=== PATIENT | female | born 1970 | race Caucasian/White ===

== ENCOUNTER 2017-12-18 06:03 | Day surgery (SDC) | payer OTHER ==
[~2017-12-18] VITALS: Ht 175.3 cm; Wt 114.9 kg
[~2017-12-18 06:03] MED LIST: ATOR20 PO; CYCL10 PO; DULO60 PO; Diclofenac Sodi50 MG; HYDACE5; HYDACE5 PO; HYDCHL25 PO; IBUP600 PO; LABE100 PO; LISI20 PO; LISINOPRIL PO; LORA1 PO; NAPR500 PO; OXYACE5T PO; OXYACE7.5T PO; PENVK500 PO; POTA10T PO; PRAZ2 PO; RXCYCL10 PO; RXHYDACE PO; RXLORA1 PO; RXOXYACE PO; VENL75
[2017-12-18] MEDS ORDERED: MELO7.5 PO (06:49)
== END 2017-12-18 12:48 | disposition home or self-care (01) ==
LOC: ORSCSDS 06:03
PROVIDERS: Otolaryngology
PROC: 0GTK0ZZ Resection of Thyroid Gland, Open Approach (ICD-10-PCS; principal; 2017-12-18 07:30)
PROC: 0GBJ0ZZ Excision of Thyroid Gland Isthmus, Open Approach (ICD-10-PCS; principal; 2017-12-18 07:30)
DX: E05.20 Thyrotoxicosis with toxic multinodular goiter without thyrotoxic crisis or storm (principal); I10 Essential (primary) hypertension; E66.01 Morbid (severe) obesity due to excess calories; Z68.37 Body mass index [BMI] 37.0-37.9, adult; Z87.891 Personal history of nicotine dependence; Z79.899 Other long term (current) drug therapy
CPT/HCPCS: 88307; J0171; J1100; J1885; J2250; J2405; J2550; J2710; J3010; J7120

== ENCOUNTER 2018-07-19 10:23 | Emergency (ER) | payer OTHER ==
[~2018-07-19] VITALS: Ht 175.3 cm; Wt 117.9 kg
[~2018-07-19 10:23] MED LIST changes: +MELO7.5 PO
[2018-07-19] MEDS ORDERED: BACL10 PO (10:31)
[2018-07-19] MEDS ORDERED: Fish Oil 10001000 MG GT (10:31)
[2018-07-19] MEDS ORDERED: Percocet 5-3251 EACH PO (12:40)
[2018-07-19] MEDS ORDERED: Robaxin500 MG PO (12:40)
== END 2018-07-19 12:58 | disposition home or self-care (01) ==
LOC: ER 10:23
DX: S16.1XXA Strain of muscle, fascia and tendon at neck level, initial encounter (principal); S29.012A Strain of muscle and tendon of back wall of thorax, initial encounter; S39.012A Strain of muscle, fascia and tendon of lower back, initial encounter; Z87.891 Personal history of nicotine dependence; V49.49XA Driver injured in collision with other motor vehicles in traffic accident, initial encounter
CPT/HCPCS: 72040; 72070; 72100; 81025; 99284-25

== ENCOUNTER 2019-10-16 16:45 | Emergency (ER) | payer OTHER ==
[~2019-10-16] VITALS: Ht 175.3 cm; Wt 127.0 kg
[~2019-10-16 16:45] MED LIST changes: +BACL10 PO; +Fish Oil 10001000 MG GT; +Percocet 5-3251 EACH PO; +Robaxin500 MG PO
== END 2019-10-16 17:58 | disposition home or self-care (01) ==
LOC: ER 16:45
DX: S16.1XXA Strain of muscle, fascia and tendon at neck level, initial encounter (principal); Z88.5 Allergy status to narcotic agent; Z88.8 Allergy status to other drugs, medicaments and biological substances; Z79.899 Other long term (current) drug therapy; Z87.891 Personal history of nicotine dependence; V43.52XA Car driver injured in collision with other type car in traffic accident, initial encounter
CPT/HCPCS: 72040; 99283-25

== ENCOUNTER 2021-01-08 14:28 | Emergency (ER) | payer OTHER ==
[~2021-01-08] VITALS: Ht 175.3 cm; Wt 128.4 kg
[2021-01-08 15:46] LABS: Source, Urine Clean Catch
[2021-01-08 16:14] LABS: Appearance, Urine Cloudy (Clear); Bilirubin, Urine Neg (Neg); Blood, Urine 5+ (Neg); Color, Urine Amber (P-Yellow); Glucose Qualitative, Urine Neg (Neg); Ketones, Urine 2+ (Neg); Leukocyte Esterase, Urine 1+ (Neg); Nitrite, Urine Pos (Neg); Protein, Urine 3+ (Neg); Specific Gravity, Urine 1.025 (1.003-1.022); Urobilinogen, Urine 1+ (Normal)
[2021-01-08 16:33] LABS: Mucus Heavy (0-Heavy)
[2021-01-08 16:35] LABS: Amorphous Light (0-Heavy); Bacteria Few /hpf; Red Blood Cells, Urine TNTC /hpf (0-2); Squamous Epithelial Cells Rare /hpf (Few); Yeast/Fungi Urine Few /hpf
[2021-01-08 18:17] LABS: BASOPHILS ABSOLUTE AUTO 0.08 K/mm3 (0.00-0.23); BASOPHILS PERCENT AUTO 0 % (0-2); EOSINOPHILS ABSOLUTE AUTO 0.02 K/mm3 (0.00-0.68); EOSINOPHILS PERCENT AUTO 0 % (0-6); Hematocrit 49.6 % (33.0-51.0); Hemoglobin 16.1 g/dL (11.5-16.0); IMMATURE GRAN PERCENT AUTO 1 % (0-1); LYMPHOCYTES ABSOLUTE AUTO 2.06 K/mm3 (0.84-5.20); LYMPHOCYTES PERCENT AUTO 11 % (21-46); MONOCYTES ABSOLUTE AUTO 0.49 K/mm3 (0.16-1.47); MONOCYTES PERCENT AUTO 3 % (4-13); Mean Corpuscular HGB 26.1 pg (26.0-34.0); Mean Corpuscular HGB Conc 32.5 g/dL (31.5-36.5); Mean Corpuscular Volume 80 fL (80-100); Mean Platelet Volume 10.4 fL (9.1-12.4); NEUTROPHILS ABSOLUTE AUTO 16.26 K/mm3 (1.96-9.15); NEUTROPHILS PERCENT AUTO 86 % (41-73); Platelet Count 474 K/mm3 (150-400); RDW Coefficient Variation 15.6 % (11.7-14.2); RDW Standard Deviation 45.6 fL (35.1-46.3); Red Blood Cell Count 6.17 M/mm3 (3.80-5.20); White Blood Cell Count 19.01 K/mm3 (4.00-11.30)
[2021-01-08] MEDS ORDERED: Synthroid200 MCG PO (18:25)
[2021-01-08 18:33] LABS: Alanine Aminotransfer (ALT/SGP 47 U/L (12-78); Albumin, Blood 4.3 g/dL (3.4-5.0); Albumin/Globulin Ratio 0.9 (0.8-1.8); Alk Phos 57 U/L (50-136); Anion Gap 7 mmol/L (6-16); Aspartate Aminotrans (AST/SGOT 24 U/L (12-37); Bilirubin, Total 0.5 mg/dL (0.1-1.0); Blood Urea Nitrogen 15 mg/dL (8-24); Bun/Creatinine Ratio 23.3 (12.0-20.0); CO2, Blood 21 mmol/L (21-32); Calcium, Blood 8.8 mg/dL (8.5-10.1); Chloride, Blood 109 mmol/L (98-108); Creatinine, Blood 0.65 mg/dL (0.40-1.00); Globulin, Blood 4.7 g/dL (2.2-4.0); Glomerular Filtration Rate >60 (60-); Glucose, Blood 119 mg/dL (70-99); Potassium, Blood 4.1 mmol/L (3.5-5.5); Sodium, Blood 137 mmol/L (136-145)
== END 2021-01-08 21:45 | disposition home or self-care (01) ==
LOC: ER 14:28
PROVIDERS: Physician Assistant
DX: N20.2 Calculus of kidney with calculus of ureter (principal); N39.0 Urinary tract infection, site not specified; E86.0 Dehydration; Z88.5 Allergy status to narcotic agent; Z79.899 Other long term (current) drug therapy; Z87.891 Personal history of nicotine dependence
CPT/HCPCS: 36415; 74177; 80053; 81001; 83605; 83690; 85025; 87040; 87086; 96361; 96365-59; 96375; 99285-25; J0692; J2270; J2405; J7120; Q9967

== ENCOUNTER → 2021-04-16 | Outpatient (CLI) | payer OTHER ==
[~2021-04-16] MED LIST changes: +Synthroid200 MCG PO
[2021-04-16 12:00] LABS: Appearance, Urine Clear (Clear); Bilirubin, Urine Neg (Neg); Blood, Urine 3+ (Neg); Color, Urine Yellow (P-Yellow); Glucose Qualitative, Urine Neg (Neg); Ketones, Urine Neg (Neg); Leukocyte Esterase, Urine Neg (Neg); Nitrite, Urine Neg (Neg); Protein, Urine Neg (Neg); Specific Gravity, Urine 1.015 (1.003-1.022); Urobilinogen, Urine NORM (Normal)
[2021-04-16 12:35] LABS: White Blood Cells, Urine 0-2 /hpf (0-5)
[2021-04-16 12:41] LABS: Bacteria Few /hpf; Squamous Epithelial Cells Mod /hpf (Few)
== END | disposition home or self-care (01) ==
LOC: LAB SHORT 10:49 → LAB 10:49 → EDSTATUS 04-16 10:05 → LAB FUT 04-16 10:05
PROVIDERS: Urology Female Pelvic Medicine and Reconstructive Surgery
DX: N39.0 Urinary tract infection, site not specified (principal)
CPT/HCPCS: 81001; 87086

== ENCOUNTER 2025-05-06 12:40 | Emergency (ER) | payer OTHER ==
[~2025-05-06] VITALS: Ht 175.3 cm; Wt 123.8 kg
[2025-05-06 12:56] VITALS: BP 148/85
[2025-05-06] MEDS ORDERED: Ketorolac Tromethamine 15mg Vial IM ONE (14:15)
[2025-05-06] MEDS ORDERED: Lidocaine 4% 1 Patch TOP ONE (14:20)
[2025-05-06] MEDS ORDERED: TIZA4 PO (16:28)
[2025-05-06] MEDS ORDERED: LIDO700A20 TOP (16:28)
[2025-05-06] MEDS ORDERED: IBUP800 PO (16:28)
[2025-05-07] MEDS ORDERED: LIDO700A20 TOP (09:29)
[2025-05-07] MEDS ORDERED: IBUP800 PO (09:29)
== END 2025-05-06 16:32 ==
LOC: ER 12:40
DX: M54.50 Low back pain, unspecified (principal); G89.29 Other chronic pain; Z87.891 Personal history of nicotine dependence; Z79.899 Other long term (current) drug therapy; Z88.5 Allergy status to narcotic agent; Z88.8 Allergy status to other drugs, medicaments and biological substances
CPT/HCPCS: 72131; 96372; 99283-25; A9270; J1885

== ENCOUNTER → 2025-07-08 | Outpatient (CLI) | payer OTHER ==
[~2025-07-08] MED LIST changes: +IBUP800 PO; +LIDO700A20 TOP; +TIZA4 PO
== END | disposition home or self-care (01) ==
LOC: LAB 08:52 → LAB SHORT 08:52
PROVIDERS: Student in an Organized Health Care Education/Training Program
DX: Z01.419 Encounter for gynecological examination (general) (routine) without abnormal findings (principal)
CPT/HCPCS: 87624; G0145